=== PATIENT | male | born 1995 | race Caucasian/White ===

== ENCOUNTER 2019-11-07 13:53 | Emergency (ER) | payer BC ==
[~2019-11-07] VITALS: Ht 177.8 cm; Wt 56.3 kg
[2019-11-07 14:04] VITALS: BP 122/74
== END 2019-11-07 14:37 | disposition home or self-care (01) ==
LOC: ER 13:55
DX: R21 Rash and other nonspecific skin eruption (principal)
CPT/HCPCS: 99281